=== PATIENT | female | born 1970 | race African-American/Black ===

== ENCOUNTER 2017-06-15 07:07 | Inpatient (IN) | payer SELFPAY ==
[2017-06-15] VITALS (7 sets, daily range): BP systolic 91–118; BP diastolic 54–81
[~2017-06-15] VITALS: Ht 167.6 cm; Wt 86.6 kg
[2017-06-15] MEDS ORDERED: Meclizine 25mg tab ORAL ONE (07:30)
[2017-06-15 07:50] LABS: BASOPHILS % (AUTO) 1.3 % (0.0-2.0); EOSINOPHILS % (AUTO) 0.8 % (0.0-3.0); HEMOGLOBIN 13.1 G/DL (12.0-16.0); LYMPHOCYTES % (AUTO) 27.9 % (20.0-45.0); MEAN CORPUSCULAR VOLUME 89 FL (80-99); MONOCYTES % (AUTO) 6.7 % (1.0-10.0); NEUTROPHILS % (AUTO) 63.3 % (45.0-75.0); PLATELET COUNT 153 K/UL (150-450); RED BLOOD COUNT 4.48 M/UL (4.20-5.40); RED CELL DISTRIBUTION WIDTH 12.7 % (11.6-14.8); WHITE BLOOD COUNT 8.5 K/UL (4.8-10.8)
[2017-06-15 07:59] LABS: ANION GAP 11 mmol/L (5-15); BLOOD UREA NITROGEN 10 mg/dL (7-18); CALCIUM 8.1 MG/DL (8.5-10.1); CARBON DIOXIDE 21 MMOL/L (21-32); CHLORIDE 107 MMOL/L (98-107); POTASSIUM 3.6 MMOL/L (3.5-5.1); SODIUM 139 MMOL/L (136-145)
[2017-06-15 08:15] LABS: ALANINE AMINOTRANSFERASE 21 U/L (12-78); ALBUMIN 3.3 G/DL (3.4-5.0); ALBUMIN/GLOBULIN RATIO 0.8 (1.0-2.7); ALKALINE PHOSPHATASE 40 U/L (46-116); ASPARTATE AMINO TRANSFERASE 29 U/L (15-37); BILIRUBIN,TOTAL 0.4 MG/DL (0.2-1.0); CKMB 0.7 NG/ML (0.0-3.6); CREATINE KINASE 161 U/L (26-308)
--- NOTE | 2017-06-15 08:31 | Diagnostic Imaging Report ---
Indications: Syncope Technique: Spiral acquisitions obtained through the brain. Angled axial and coronal 5 x 5 mm slices were reconstructed. Total dose length product 1382.96 mGycm. CTDI vol(s) 70.38 mGy. Dose reduction achieved using automated exposure control Comparison: None. Findings: No acute intracranial hemorrhage or edema. No mass effect or midline shift. Normal her-white differentiation. Normal-sized ventricles and extra axial CSF spaces. Visualized orbits and sinuses are unremarkable. The calvarium is intact. Impression: Negative The CT scanner at [facility] is accredited by the [employer] and the scans are performed using protocols designed to limit radiation exposure to as low as reasonably achievable to attain images of sufficient resolution adequate for diagnostic evaluation.
--- NOTE | 2017-06-15 08:57 | Emergency Room Report ---
History of Present Illness General Chief Complaint: Syncope Source: Patient Present Illness HPI 46-year-old female presents ED for evaluation. Patient brought in by EMS. States that she woke up this morning and felt very dizzy. Moira that the room was spinning "in up to down fashion". States that she was unable to walk instead ED and was crawling to the bathroom. Call 911. States she still feels the symptoms. Denies any headache. Denies neck stiffness. Denies fevers or chills. States she felt fine last night. Denies any prior episodes. No other aggravating or relieving factors. Denies chest pain or shortness of breath. Denies any other associated symptoms Allergies: Coded Allergies: No Known Allergies (Unverified , 06/15/17) Patient History Past Medical History: none Past Surgical History: none Pertinent Family History: none Social History: Denies: smoking, alcohol use, drug use Last Menstrual Period: "last month" Now: No Immunizations: UTD Reviewed Nursing Documentation: PMH: Agreed; PSxH: Agreed Nursing Documentation-PMH Past Medical History: No Stated History Review of Systems All Other Systems: negative except mentioned in HPI Physical Exam Vital Signs Date Time Temp Pulse Resp B/P (MAP) Pulse Ox O2 Delivery O2 Flow Rate FiO2 06/15/17 07:04 97.8 70 16 109/73 100 Room Air 97.9 Sp02 EP Interpretation: reviewed, normal General Appearance: no apparent distress, alert, GCS 15, non-toxic Head: normocephalic, atraumatic Eyes: bilateral eye normal inspection, bilateral eye PERRL ENT: hearing grossly normal, normal pharynx, no angioedema, normal voice Neck: full range of motion, supple/symm/no masses Respiratory: chest non-tender, lungs clear, normal breath sounds, speaking full sentences Cardiovascular #1: regular rate, rhythm, no edema Cardiovascular #2: 2+ carotid (R), 2+ carotid (L), 2+ radial (R), 2+ radial (L) , 2+ dorsalis pedis (R), 2+ dorsalis pedis (L) Gastrointestinal: normal bowel sounds, non tender, soft, non-distended, no guarding, no rebound Rectal: deferred Genitourinary: normal inspection, no CVA tenderness Musculoskeletal: back normal, gait/station normal, normal range of motion, non- tender Neurologic: alert, oriented x3, responsive, platform beater III-XII nml as tested, motor strength/tone normal, sensory intact, speech normal Psychiatric: judgement/insight normal, memory normal, mood/affect normal, no suicidal/homicidal ideation Reflexes: 3+ bicep (R), 3+ bicep (L), 3+ tricep (R), 3+ tricep (L), 3+ knee (R) , 3+ knee (L) Skin: normal color, no rash, warm/dry, well hydrated Lymphatic: no adenopathy Medical Decision Making Diagnostic Impression: Primary Impression: Vertigo Additional Impression: Unsteady gait ER Course Hospital Course 46-year-old female woke up with severe vertigo and dizziness with unsteady gait Differential diagnoses include: CT/unstable angina, arrythmia, dehydration, CVA/ TIA Clinical course Patient placed on stretcher. 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 After initial history and physical I ordered labs, EKG, chest x-ray, IVFs, CT Brain labs reviewed- no leukocytosis, hemoglobin/hematocrit ok, electrolytes okay, troponins negative EKG- NSR, no acute ischemic changes interpreted by me Chest x-ray- no acute process CT brain-unremarkable MRI also shows no acute process. Despite medications and IV fluids patient remains with vertigo and unsteady gait. I believe patient will require admission Case discussed with Dr. Arias and he agreed to accept the patient to his service for further care and support I. I feel this is a highly complex case requiring extensive working including EKG/Rhythm strip, Xray/CT/US, Blood/urine lab work, repeat exams while in ED, and administration of strong opiates/narcotics for pain control, admission to hospital or close patient follow up. Diagnosis - vertigo, unsteady gait admitted to floor in serious condition Labs Test 06/15/17 07:30 06/15/17 08:30 White Blood Count 8.5 K/UL (4.8-10.8) Red Blood Count 4.48 M/UL (4.20-5.40) Hemoglobin 13.1 G/DL (12.0-16.0) Hematocrit 40.0 % (37.0-47.0) Mean Corpuscular Volume 89 FL (80-99) Mean Corpuscular Hemoglobin 29.2 PG (27.0-31.0) Mean Corpuscular Hemoglobin Concent 32.7 G/DL (32.0-36.0) Red Cell Distribution Width 12.7 % (11.6-14.8) Platelet Count 153 K/UL (150-450) Mean Platelet Volume 7.7 FL (6.5-10.1) Neutrophils (%) (Auto) 63.3 % (45.0-75.0) Lymphocytes (%) (Auto) 27.9 % (20.0-45.0) Monocytes (%) (Auto) 6.7 % (1.0-10.0) Eosinophils (%) (Auto) 0.8 % (0.0-3.0) Basophils (%) (Auto) 1.3 % (0.0-2.0) Sodium Level 139 MMOL/L (136-145) Potassium Level 3.6 MMOL/L (3.5-5.1) Chloride Level 107 MMOL/L (98-107) Carbon Dioxide Level 21 MMOL/L (21-32) Anion Gap 11 mmol/L (5-15) Blood Urea Nitrogen 10 mg/dL (7-18) Creatinine 1.0 MG/DL (0.55-1.30) Estimat Glomerular Filtration Rate 59.7 mL/min (>60) Glucose Level 98 MG/DL (74-106) Calcium Level 8.1 MG/DL (8.5-10.1) Total Bilirubin 0.4 MG/DL (0.2-1.0) Aspartate Amino Transf (AST/SGOT) 29 U/L (15-37) Alanine Aminotransferase (ALT/SGPT) 21 U/L (12-78) Alkaline Phosphatase 40 U/L (46-116) Total Creatine Kinase 161 U/L (26-308) Creatine Kinase MB 0.7 NG/ML (0.0-3.6) Creatine Kinase MB Relative Index 0.4 Troponin I 0.000 ng/mL (0.000-0.056) Total Protein 7.3 G/DL (6.4-8.2) Albumin 3.3 G/DL (3.4-5.0) Globulin 4.0 g/dL Albumin/Globulin Ratio 0.8 (1.0-2.7) EKG Diagnostic Results Rate: normal Rhythm: NSR ST Segments: no acute changes ASA given to the pt in ED: No Rhythm Strip Diag. Results EP Interpretation: yes Rhythm: NSR, no PVC's, no ectopy Chest X-Ray Diagnostic Results Chest X-Ray Diagnostic Results : Chest X-Ray Ordered: Yes # of Views/Limited/Complete: 1 View Indication: Other - dizziness EP Interpretation: Yes Interpretation: no consolidation, no effusion, no pneumothorax, no acute cardiopulmonary disease Impression: No acute disease Electronically Signed by: Electronically signed by Vaughn Melara MD CT/MRI/US Diagnostic Results CT/MRI/US Diagnostic Results #1: Imaging Test Ordered: CT Head Impression no acute process CT/MRI/US Diagnostic Results #2: Imaging Test Ordered: MRI Brain Impression no acute process Last Vital Signs Date Time Temp Pulse Resp B/P (MAP) Pulse Ox O2 Delivery O2 Flow Rate FiO2 06/15/17 07:14 97.9 71 14 114/81 98 Room Air 97.9 Status: improved Disposition: ADMITTED INPATIENT Condition: Serious Referrals: NOT CHOSEN IPA/,REFERRING (PCP) Vaughn Melara MD Jun 15, 2017 08:57
[2017-06-15 08:58] LABS: APPEARANCE,URINE CLEAR; BILIRUBIN, URINE NEGATIVE (NEGATIVE); COLOR,URINE YELLOW; GLUCOSE, URINE (UA) NEGATIVE (NEGATIVE); KETONES,URINE NEGATIVE (NEGATIVE); LEUKOCYTE ESTERASE ,URINE 3+ (NEGATIVE); NITRITE,URINE POSITIVE (NEGATIVE); PH,URINE 6 (4.5-8.0); PROTEIN,URINE NEGATIVE (NEGATIVE); UROBILINOGEN,URINE NORMAL MG/DL (0.0-1.0)
--- NOTE | 2017-06-15 09:24 | Diagnostic Imaging Report ---
Indication: Chest pain Technique: One view of the chest Comparison: Findings: Lungs and pleural spaces are clear. Heart size is normal Impression: No acute process
--- NOTE | 2017-06-15 10:13 | Diagnostic Imaging Report ---
Indication: Dizziness and syncope Technique: sagittal T1 fast spin echo, axial T1 FLAIR, axial T2 FLAIR, axial T2 FS PROPELLER, axial T2* GRE, axial diffusion weighted images. ADC and exponential ADC maps generated Comparison: Head CT performed 1 1/2 hours earlier Findings: No abnormal areas of restricted diffusion to suggest acute infarction. No acute hemorrhage or edema. No mass effect nor midline shift. Normal size ventricles and extra axial CSF spaces. Visualized orbits and sinuses are unremarkable. Impression: Negative
[2017-06-15] MEDS ORDERED: cefTRIAXone 1 GM in NS 55 ML IVPB ONE (10:30)
--- NOTE | 2017-06-15 12:38 | Neurology Progress Note ---
Objective Physical Exam Last Vital Signs Date Time Temp Pulse Resp B/P (MAP) Pulse Ox O2 Delivery O2 Flow Rate FiO2 06/15/17 10:31 98.0 81 21 118/68 98 Room Air 98.0 Laboratory Tests Test 06/15/17 07:30 06/15/17 08:30 White Blood Count 8.5 K/UL (4.8-10.8) Red Blood Count 4.48 M/UL (4.20-5.40) Hemoglobin 13.1 G/DL (12.0-16.0) Hematocrit 40.0 % (37.0-47.0) Mean Corpuscular Volume 89 FL (80-99) Mean Corpuscular Hemoglobin 29.2 PG (27.0-31.0) Mean Corpuscular Hemoglobin Concent 32.7 G/DL (32.0-36.0) Red Cell Distribution Width 12.7 % (11.6-14.8) Platelet Count 153 K/UL (150-450) Mean Platelet Volume 7.7 FL (6.5-10.1) Neutrophils (%) (Auto) 63.3 % (45.0-75.0) Lymphocytes (%) (Auto) 27.9 % (20.0-45.0) Monocytes (%) (Auto) 6.7 % (1.0-10.0) Eosinophils (%) (Auto) 0.8 % (0.0-3.0) Basophils (%) (Auto) 1.3 % (0.0-2.0) Sodium Level 139 MMOL/L (136-145) Potassium Level 3.6 MMOL/L (3.5-5.1) Chloride Level 107 MMOL/L (98-107) Carbon Dioxide Level 21 MMOL/L (21-32) Anion Gap 11 mmol/L (5-15) Blood Urea Nitrogen 10 mg/dL (7-18) Creatinine 1.0 MG/DL (0.55-1.30) Estimat Glomerular Filtration Rate 59.7 mL/min (>60) Glucose Level 98 MG/DL (74-106) Calcium Level 8.1 MG/DL (8.5-10.1) L Total Bilirubin 0.4 MG/DL (0.2-1.0) Aspartate Amino Transf (AST/SGOT) 29 U/L (15-37) Alanine Aminotransferase (ALT/SGPT) 21 U/L (12-78) Alkaline Phosphatase 40 U/L (46-116) L Total Creatine Kinase 161 U/L (26-308) Creatine Kinase MB 0.7 NG/ML (0.0-3.6) Creatine Kinase MB Relative Index 0.4 Troponin I 0.000 ng/mL (0.000-0.056) Total Protein 7.3 G/DL (6.4-8.2) Albumin 3.3 G/DL (3.4-5.0) L Globulin 4.0 g/dL Albumin/Globulin Ratio 0.8 (1.0-2.7) L Urine Color Yellow Urine Appearance Clear Urine pH 6 (4.5-8.0) Urine Specific [place] 1.010 (1.005-1.035) Urine Protein Negative (NEGATIVE) Urine Glucose (UA) Negative (NEGATIVE) Urine Ketones Negative (NEGATIVE) Urine Occult Blood 2+ (NEGATIVE) H Urine Nitrite Positive (NEGATIVE) H Urine Bilirubin Negative (NEGATIVE) Urine Urobilinogen Normal MG/DL (0.0-1.0) Urine Leukocyte Esterase 3+ (NEGATIVE) H Urine RBC 2-4 /HPF (0 - 2) H Urine WBC 5-10 /HPF (0 - 2) H Urine Squamous Epithelial Cells Few /LPF (NONE/OCC) Urine Bacteria Moderate /HPF (NONE) H Impression/Recommendations Recommendations #[id number] BRANDIE MISTRY Jun 15, 2017 12:38
[2017-06-15] MEDS: Meclizine 25mg tab ORAL SCH ×3 (12:57→23:11)
[2017-06-15] MEDS ORDERED: MULTIVITAMINS1 EAC2 ORAL (17:58)
[2017-06-15] MEDS ORDERED: GARLIC1 EAC1 PO (17:58)
--- NOTE | 2017-06-15 18:45 | Consultation ---
DATE OF CONSULTATION: 06/15/2017 NEUROLOGICAL CONSULTATION CONSULTING PHYSICIAN: Honorio Rao M.D. REQUESTING PHYSICIAN: Sreekanth Arias D.O. LOCATION: Emergency room. HISTORY OF PRESENT ILLNESS: This is a 46-year-old female, seen in neurological consultation to evaluate the new onset of acute positional vertigo. According to the patient, over the last few days she was feeling fairly well. She has no health issues. She has no flu symptoms. She denies she has no exposure to any alcohol or drugs. She went to bed feeling well and she slept well until about 5:30 when she woke up to go to the bathroom, but when she got up, she felt "like a wavy lines in my eyes like earth moving from underneath my feet". She was trying to walk. She was very unstable, so she had to sit back. Later, she ease up herself to the floor, slowly crawled to the bathroom, pulled up herself on the bathtub. On the way back, she felt like things were spinning "ups and down". As she was getting up, she felt nausea. At that point, she called her mother who was a registered nurse, advised to stay still for an hour. If not get better, then call paramedics. So, she went to bed. While staying still, she felt better, but any attempt to turn around or predominantly get up made her feel nauseous and unsteady. At one point, she got up, got dizzy, lost consciousness, and fell. Her roommate put some cold compress on her head while calling 911. Paramedics found her fully awake. Vital signs were stable. The patient indicate that paramedics later told her that she had two more brief episodes of unresponsiveness. Since arrival to emergency room, she prefers to stay in a dark room, in supine position, which makes her most comfortable. Her vital signs remained stable, blood pressure 109/76 and temperature 97.8 degrees. Initial assessment revealed no evidence of electrolyte deficits. EKG, normal sinus rhythm. Chest x-ray, no acute process. CT scan of the brain revealed no acute abnormalities. MRI of the brain revealed no acute abnormalities. No midline shift. The patient is being admitted for further observation and treatment. While in the ER, she was given meclizine 50 mg, but also Zofran 4 mg IV. She was started on IV fluids and Rocephin. PAST MEDICAL HISTORY: No medical issues in the past. No loss of consciousness. No similar episodes of dizziness. ALLERGIES: None reported. FAMILY HISTORY: Noncontributory. SOCIAL HISTORY: Single, lives with a girlfriend. 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 No alcohol. No drug abuse. Nonsmoker. REVIEW OF SYMPTOMS: While supine, lying still, she feels fairly well with no headache, no dizziness, no chest pain, no palpitations, no respiratory problems, no unilateral weakness, numbness, or tingling. No urine or bowel incontinence. The patient indicated that as she tried to get up, she felt very unsteady and had to hold on. She felt very unsteady when she is getting up on her feet. She found no difference lying in bed on the right or left side. PHYSICAL EXAMINATION: GENERAL: A well-developed, well-nourished, pleasant lady, not in acute distress, found to be lying on a stretcher with eyes closed in dark room. VITAL SIGNS: Her vital signs are stable, blood pressure 118/80 and respirations 14. HEENT: Head, normocephalic. There is no evidence of trauma. Eyes, ears, and throat are clear. NECK: Supple. No meningeal signs. MUSCULOSKELETAL: Unremarkable. There are no deformities. Peripheral pulses 1+ and symmetric. MENTAL STATUS: She is fully alert and oriented x3 with no evidence of aphasia or apraxia. Cognitive function normal. No perception. No thought abnormalities. Emotionally stable. CRANIAL NERVE II: Pupils are 3 mm, both responding to light and accommodation. Extraocular movements full range. There is a saccadic pursuit and lateral gazes. No clear evidence of nystagmus. While staying still, she was able to move eyes in all directions without causing dizziness or nausea. CRANIAL NERVE V: Normal corneal responses. CRANIAL NERVE VII: No facial asymmetry. CRANIAL NERVE VIII: Normal hearing. Attempted Hallpike maneuver. With sitting up, the patient felt acute dizziness. There was no nystagmus noted. There was no vertigo sensation with the head turned to right or left. While in sitting position, the patient has been ataxic. CRANIAL NERVES IX THROUGH XII: Tongue is in midline. Symmetric palate elevation. MOTOR EXAMINATION: Normal muscle tone. Strength 5/5 in all extremities. No involuntary movement. Deep tendon reflexes 1+ and symmetric with downgoing toes on both sides. SENSORY EXAM: Normal to pinprick and light touch. Coordination, very slow [id number], but accurate. Normal [id number] test. The patient was able to sit up very cautiously. While sitting, she was unsteady holding out to the bed board. She was not attempting to get up. IMPRESSION: Probably acute benign positional vertigo with nausea and truncal ataxia. DISCUSSION: The patient has no radiological evidence of encephalitis, demyelinating disease, or acute ischemic disease. No hemorrhages. The patient has no risk factors to suspect such. It is unusual aspect of positional vertigo. It is significant level of truncal ataxia. The patient will remain under observation following 24 hours. We will continue with meclizine 25 mg q.i.d., Zofran as needed. Laboratory work to include HESHAM, sedimentation rate, lipid panel, and thyroid function. Continue with IV hydration and maintain fall precaution. Thank you for allowing me to see this interesting patient in neurological consultation. Honorio Rao M.D. DR: MKII JOB#: [id number] CC:
--- NOTE | 2017-06-15 19:30 | History and Physical Report ---
DATE OF ADMISSION: 06/15/2017 TIME: 3 p.m. CONSULTANTS: 1. Honorio Rao M.D. 2. Naeem Majano M.D. CHIEF COMPLAINT: Dizziness, vertigo and nausea. BRIEF HISTORY: The patient is a 46-year-old female, yesterday started having vertigo, . The patient became nauseous, but vomitus. She became very weak and came to [place], diagnosed as above, being admitted to shortly. Currently calm, slightly anxious in bed, oriented x3, slight distress secondary to nausea and dizziness. PAST MEDICAL HISTORY: Nothing. PAST SURGICAL HISTORY: None. MEDICATIONS: Meclizine, Zofran, and ceftriaxone. ALLERGIES: Denies. SOCIAL HISTORY: No smoke. Occasional alcohol. No intravenous drug abuse. FAMILY HISTORY: Noncontributory. PHYSICAL EXAMINATION: GENERAL: Slightly anxious in bed, oriented x3, no acute distress. VITAL SIGNS: Temperature 97 degrees, pulse 89, respiratory rate 18, and blood pressure 113/64. CARDIOVASCULAR: No murmur. LUNGS: Distant and clear. ABDOMEN: Bowel sound positive. Nontender. Nondistended. EXTREMITIES: No cyanosis, clubbing, or edema. NEUROLOGIC: The patient moves all extremities slightly weak. LABORATORY AND DIAGNOSTIC DATA: CBC is normal. BMP shows calcium 8.1 and albumin 3.3, otherwise BMP is normal. Urinalysis, 2+ occult blood and 3+ leukocyte esterase. ASSESSMENT: 1. UTI. 2. Vertigo. 3. Dizziness. 4. Nausea. PLAN: Continue premedications. OT/PT. Dietary evaluation. CBC and BMP in the morning. Antibiotics per Infectious Disease. Dustin Rao, Dr. Majano and Dr. Tenorio to consult. We will continue to follow this patient medically. Sreekanth Arias D.O. DR: ELIZABETH JOB#: [id number] CC:
[2017-06-15 21:55] LABS: CHOLESTEROL 191 MG/DL (< 200); HDL CHOLESTEROL 45 MG/DL (40-60); TRIGLYCERIDES 103 MG/DL (30-150)
--- NOTE | 2017-06-15 22:52 | Cardiology Progress Note ---
Assessment/Plan Assessment/Plan The patient is seen and examined, full consult note will be dictated shortly. Objective Last 24 Hour Vital Signs Date Time Temp Pulse Resp B/P (MAP) Pulse Ox O2 Delivery O2 Flow Rate FiO2 06/15/17 20:10 98.9 104 20 107/60 99 Room Air 98.9 06/15/17 18:51 98.3 80 15 93/58 99 Room Air 98.3 06/15/17 17:10 98.6 79 17 91/54 98 Room Air 98.6 06/15/17 15:00 97.9 79 18 113/64 98 Room Air 97.9 06/15/17 12:58 98.3 96 17 98/56 99 Room Air 98.3 06/15/17 10:31 98.0 81 21 118/68 98 Room Air 98.0 06/15/17 07:14 97.9 71 14 114/81 98 Room Air 97.9 06/15/17 07:04 97.8 70 16 109/73 100 Room Air 97.9 Laboratory Tests Test 06/15/17 07:30 06/15/17 08:30 06/15/17 21:20 White Blood Count 8.5 K/UL (4.8-10.8) Red Blood Count 4.48 M/UL (4.20-5.40) Hemoglobin 13.1 G/DL (12.0-16.0) Hematocrit 40.0 % (37.0-47.0) Mean Corpuscular Volume 89 FL (80-99) Mean Corpuscular Hemoglobin 29.2 PG (27.0-31.0) Mean Corpuscular Hemoglobin Concent 32.7 G/DL (32.0-36.0) Red Cell Distribution Width 12.7 % (11.6-14.8) Platelet Count 153 K/UL (150-450) Mean Platelet Volume 7.7 FL (6.5-10.1) Neutrophils (%) (Auto) 63.3 % (45.0-75.0) Lymphocytes (%) (Auto) 27.9 % (20.0-45.0) Monocytes (%) (Auto) 6.7 % (1.0-10.0) Eosinophils (%) (Auto) 0.8 % (0.0-3.0) Basophils (%) (Auto) 1.3 % (0.0-2.0) Sodium Level 139 MMOL/L (136-145) Potassium Level 3.6 MMOL/L (3.5-5.1) Chloride Level 107 MMOL/L (98-107) Carbon Dioxide Level 21 MMOL/L (21-32) Anion Gap 11 mmol/L (5-15) Blood Urea Nitrogen 10 mg/dL (7-18) Creatinine 1.0 MG/DL (0.55-1.30) Estimat Glomerular Filtration Rate 59.7 mL/min (>60) Glucose Level 98 MG/DL (74-106) Calcium Level 8.1 MG/DL (8.5-10.1) L Total Bilirubin 0.4 MG/DL (0.2-1.0) Aspartate Amino Transf (AST/SGOT) 29 U/L (15-37) Alanine Aminotransferase (ALT/SGPT) 21 U/L (12-78) Alkaline Phosphatase 40 U/L (46-116) L Total Creatine Kinase 161 U/L (26-308) Creatine Kinase MB 0.7 NG/ML (0.0-3.6) Creatine Kinase MB Relative Index 0.4 Troponin I 0.000 ng/mL (0.000-0.056) Total Protein 7.3 G/DL (6.4-8.2) Albumin 3.3 G/DL (3.4-5.0) L Globulin 4.0 g/dL Albumin/Globulin Ratio 0.8 (1.0-2.7) L Urine Color Yellow Urine Appearance Clear Urine pH 6 (4.5-8.0) Urine Specific [place] 1.010 (1.005-1.035) Urine Protein Negative (NEGATIVE) Urine Glucose (UA) Negative (NEGATIVE) Urine Ketones Negative (NEGATIVE) Urine Occult Blood 2+ (NEGATIVE) H Urine Nitrite Positive (NEGATIVE) H Urine Bilirubin Negative (NEGATIVE) Urine Urobilinogen Normal MG/DL (0.0-1.0) Urine Leukocyte Esterase 3+ (NEGATIVE) H Urine RBC 2-4 /HPF (0 - 2) H Urine WBC 5-10 /HPF (0 - 2) H Urine Squamous Epithelial Cells Few /LPF (NONE/OCC) Urine Bacteria Moderate /HPF (NONE) H Erythrocyte Sedimentation Rate 27 MM/HR (0-20) H C-Reactive Protein, Quantitative < 0.4 mg/dL (0.00-0.90) Triglycerides Level 103 MG/DL (30-150) Cholesterol Level 191 MG/DL (< 200) LDL Cholesterol 130 mg/dL (<100) H HDL Cholesterol 45 MG/DL (40-60) Cholesterol/HDL Ratio 4.2 (3.3-4.4) Vitamin B12 Level 753 PG/ML (193-986) Anti-Nuclear Antibody Screen Pending RESHMA PEREZ Jun 15, 2017 22:52
[2017-06-16] VITALS: BP 117/68
[2017-06-16 04:00] VITALS: BP 109/70
[2017-06-16] MEDS: Meclizine 25mg tab ORAL SCH ×3 (06:14→17:39)
[2017-06-16 07:13] LABS: BASOPHILS % (AUTO) 1.6 % (0.0-2.0); EOSINOPHILS % (AUTO) 1.3 % (0.0-3.0); HEMATOCRIT 36.6 % (37.0-47.0); HEMOGLOBIN 11.7 G/DL (12.0-16.0); LYMPHOCYTES % (AUTO) 41.6 % (20.0-45.0); MEAN CORPUSCULAR VOLUME 90 FL (80-99); MONOCYTES % (AUTO) 10.1 % (1.0-10.0); NEUTROPHILS % (AUTO) 45.3 % (45.0-75.0); PLATELET COUNT 178 K/UL (150-450); RED BLOOD COUNT 4.05 M/UL (4.20-5.40); RED CELL DISTRIBUTION WIDTH 12.9 % (11.6-14.8); WHITE BLOOD COUNT 7.6 K/UL (4.8-10.8)
[2017-06-16 07:15] LABS: ANION GAP 8 mmol/L (5-15); BLOOD UREA NITROGEN 12 mg/dL (7-18); CALCIUM 7.7 MG/DL (8.5-10.1); CARBON DIOXIDE 26 MMOL/L (21-32); CHLORIDE 109 MMOL/L (98-107); CREATININE 1.1 MG/DL (0.55-1.30); POTASSIUM 3.5 MMOL/L (3.5-5.1); SODIUM 142 MMOL/L (136-145)
[2017-06-16 08:00] VITALS: BP 105/68
[2017-06-16 12:00] VITALS: BP 111/53
--- NOTE | 2017-06-16 12:04 | Neurology Progress Note ---
Interim History Interim History ROS Limited/Unobtainable: No Complaints: POSITIONAL VERTIGO UNSTEADY GAIT Events: sl improvement Objective Physical Exam Last Vital Signs Date Time Temp Pulse Resp B/P (MAP) Pulse Ox O2 Delivery O2 Flow Rate FiO2 06/16/17 08:00 98.1 74 18 105/68 98 98.1 06/15/17 20:15 Room Air Laboratory Tests Test 06/15/17 21:20 06/16/17 05:10 Erythrocyte Sedimentation Rate 27 MM/HR (0-20) H C-Reactive Protein, Quantitative < 0.4 mg/dL (0.00-0.90) Triglycerides Level 103 MG/DL (30-150) Cholesterol Level 191 MG/DL (< 200) LDL Cholesterol 130 mg/dL (<100) H HDL Cholesterol 45 MG/DL (40-60) Cholesterol/HDL Ratio 4.2 (3.3-4.4) Vitamin B12 Level 753 PG/ML (193-986) Anti-Nuclear Antibody Screen Pending White Blood Count 7.6 K/UL (4.8-10.8) Red Blood Count 4.05 M/UL (4.20-5.40) L Hemoglobin 11.7 G/DL (12.0-16.0) L Hematocrit 36.6 % (37.0-47.0) L Mean Corpuscular Volume 90 FL (80-99) Mean Corpuscular Hemoglobin 28.9 PG (27.0-31.0) Mean Corpuscular Hemoglobin Concent 32.0 G/DL (32.0-36.0) Red Cell Distribution Width 12.9 % (11.6-14.8) Platelet Count 178 K/UL (150-450) Mean Platelet Volume 6.8 FL (6.5-10.1) Neutrophils (%) (Auto) 45.3 % (45.0-75.0) Lymphocytes (%) (Auto) 41.6 % (20.0-45.0) Monocytes (%) (Auto) 10.1 % (1.0-10.0) H Eosinophils (%) (Auto) 1.3 % (0.0-3.0) Basophils (%) (Auto) 1.6 % (0.0-2.0) Sodium Level 142 MMOL/L (136-145) Potassium Level 3.5 MMOL/L (3.5-5.1) Chloride Level 109 MMOL/L (98-107) H Carbon Dioxide Level 26 MMOL/L (21-32) Anion Gap 8 mmol/L (5-15) Blood Urea Nitrogen 12 mg/dL (7-18) Creatinine 1.1 MG/DL (0.55-1.30) Estimat Glomerular Filtration Rate > 60 mL/min (>60) Glucose Level 101 MG/DL (74-106) Calcium Level 7.7 MG/DL (8.5-10.1) L General: well developed, well nourished, no acute distress, other Head: normocophalic Neck: no rigidity EENT: benign Neurologic Exam Mental Status: awake, alert, oriented x4, normal cognition, good mathematical skills, normal recent memory, normal remote memory, preserved visuospatial function Speech: normal speech, no dysarthia Language: normal language, no aphasia Cranial Nerve II: fundus normal, visual jenkins, no papilledema Cranial Nerves III, IV, : PERRLA, EOMI, pupils Cranial Nerve V: normal facial sensations, temporales function normal, masseters function normal, pterygoids function normal Cranial Nerve VII: no facial asymmetry, normal facial expressions Cranial Nerve VIII: normal hearing, no nystagmus, other - positiona dizziness Cranial Nerve IX: normal palate elevation, gag response Cranial Nerve X: no voice hoarseness Cranial Nerve XI: SCM symmetric, trapezii function normal Cranial Nerve XII: tongue midline, no tongue atrophy/fasciculations Motor System: normal muscle tone, strength 5/5, no involuntary movement, no muscle wasting Sensory: normal pinprick, normal light touch, normal position sense, normal graphesthesia Coordination: normal finger to nose bilaterally, normal heel to mcdowell bilaterally, negative Romberg test, other - + romberg, unsteady Deep Tendon Reflexes: 2+ bicep (L), 2+ bicep (R), 2+ tricep (L), 2+ tricep (R) , 2+ brachioradialis (L), 2+ brachioradialis (R), 2+ knee (L), 2+ knee (R), 2+ ankle (L), 2+ ankle (R) Stance: normal Gait: stable, normal regular, heel + toe gait, other - ataxia Impression/Recommendations Problems: (1) Unsteady gait (2) Vertigo Recommendations decadron 4mg tid today only #[id number] BRANDIE MISTRY Jun 16, 2017 12:04
[2017-06-16] MEDS: Dexamethasone 4mg/ml vial IVP SCH ×3 (12:42→18:00)
--- NOTE | 2017-06-16 13:16 | Consultation ---
Consult Note Consult Note ID DIC # [id number] Mario Tenorio MD Jun 16, 2017 13:16
--- NOTE | 2017-06-16 14:27 | General Progress Note ---
Assessment/Plan Problem List: (1) UTI (urinary tract infection) ICD Codes: N39.0 - Urinary tract infection, site not specified SNOMED: 56041152 (2) Vertigo ICD Codes: R42 - Dizziness and giddiness SNOMED: 518879403, 007905725 (3) Unsteady gait ICD Codes: R26.81 - Unsteadiness on feet SNOMED: 06274084, 876657871 Status: unchanged Assessment/Plan ot pt diet abx cbc bmp am dc plan Subjective Constitutional: Reports: weakness Allergies: Coded Allergies: No Known Allergies (Unverified , 06/15/17) All Systems: reviewed and negative except above Subjective sl dizzy Objective Last 24 Hour Vital Signs Date Time Temp Pulse Resp B/P (MAP) Pulse Ox O2 Delivery O2 Flow Rate FiO2 06/16/17 12:00 98.2 76 18 111/53 99 98.2 06/16/17 08:00 98.1 74 18 105/68 98 98.1 06/16/17 04:00 98.1 74 21 109/70 97 98.1 06/16/17 00:00 97.7 96 21 117/68 98 97.7 06/15/17 20:15 98.9 104 20 107/60 99 Room Air 98.9 06/15/17 20:10 98.9 104 20 107/60 99 Room Air 98.9 06/15/17 18:51 98.3 80 15 93/58 99 Room Air 98.3 06/15/17 17:10 98.6 79 17 91/54 98 Room Air 98.6 06/15/17 15:00 97.9 79 18 113/64 98 Room Air 97.9 Intake and Output 06/15/17 06/16/17 19:00 07:00 Intake Total 1055 ml Balance 1055 ml Intake IV Total 1055 ml # Voids 1 1 Laboratory Tests 06/15/17 21:20: Erythrocyte Sedimentation Rate 27H, C-Reactive Protein, Quantitative < 0.4, Triglycerides Level 103, Cholesterol Level 191, LDL Cholesterol 130H, HDL Cholesterol 45, Cholesterol/HDL Ratio 4.2, Vitamin B12 Level 753, Anti-Nuclear Antibody Screen [Pending] 06/16/17 05:10: White Blood Count 7.6, Red Blood Count 4.05L, Hemoglobin 11.7L, Hematocrit 36.6L , Mean Corpuscular Volume 90, Mean Corpuscular Hemoglobin 28.9, Mean Corpuscular Hemoglobin Concent 32.0, Red Cell Distribution Width 12.9, Platelet Count 178, Mean Platelet Volume 6.8, Neutrophils (%) (Auto) 45.3, Lymphocytes (% ) (Auto) 41.6, Monocytes (%) (Auto) 10.1H, Eosinophils (%) (Auto) 1.3, Basophils (%) (Auto) 1.6, Sodium Level 142, Potassium Level 3.5, Chloride Level 109H, Carbon Dioxide Level 26, Anion Gap 8, Blood Urea Nitrogen 12, Creatinine 1.1, Estimat Glomerular Filtration Rate > 60, Glucose Level 101, Calcium Level 7.7L Height (Feet): 5 Height (Inches): 6.00 Weight (Pounds): 191 General Appearance: alert EENT: normal ENT inspection Neck: normal alignment Cardiovascular: normal peripheral pulses, normal rate, regular rhythm Respiratory/Chest: chest wall non-tender, lungs clear, normal breath sounds Abdomen: normal bowel sounds, non tender, soft Extremities: normal inspection Edema: no edema noted Arm (L), no edema noted Arm (R), no edema noted Leg (L), no edema noted Leg (R), no edema noted Pedal (L), no edema noted Pedal (R), no edema noted Generalized Neurologic: responsive, motor weakness Skin: normal pigmentation, warm/dry DELIA ALLEN Jun 16, 2017 14:27
[2017-06-16 15:56] VITALS: BP 116/70
--- NOTE | 2017-06-16 16:44 | Cardiology Report ---
APPROVED REPORT EKG Measurement Heart [id number] Normal sinus rhythm Normal ECG
--- NOTE | 2017-06-16 18:45 | Consultation ---
DATE OF CONSULTATION: 06/16/2017 INFECTIOUS DISEASES CONSULTATION CONSULTING PHYSICIAN: Maroi Tenorio M.D. REQUESTING PHYSICIAN: Sreekanth Arias D.O. REASON FOR CONSULTATION: Evaluation of the patient for possible infectious process disease as the patient has vertigo/positional vertigo. HISTORY OF PRESENT ILLNESS: The patient is a 46-year-old female with no prior past medical history who develops onset of vertigo mostly with change of position and make her have severe dizziness. The patient has been nauseous and has mild light sensitivity who came to the emergency room. The patient was admitted. The patient does not have history of upper respiratory tract infection or fever recently. No complaint of ear pain to suggest otitis. There is no neck pain or severe headache. PAST MEDICAL HISTORY: Unremarkable. PAST SURGICAL HISTORY: None. MEDICATIONS: The patient has been started on steroids by neurologist, received one dose of Rocephin in the emergency room. ALLERGIES: No known drug allergies. SOCIAL HISTORY: Negative for alcohol or drug and the patient drinks occasionally. FAMILY HISTORY: Not contributing. PHYSICAL EXAMINATION: VITAL SIGNS: Temperature 98 degrees, blood pressure 111/52, pulse 76, and respiratory rate 18. HEENT: No pale conjunctivae. No icterus. NECK: Supple. No lymphadenopathy. CHEST: Clear. HEART: S1 and S2. ABDOMEN: Soft. NEUROLOGIC: The patient is nonfocal; however, after dizziness especially rotating the head toward the left. LABORATORY AND DIAGNOSTIC DATA: CBC overall unremarkable. UA unremarkable. BUN and creatinine are unremarkable. Alkaline phosphatase is unremarkable. Urine culture is growing gram-negative rods, 100,000 colonies. ASSESSMENT: 1. The patient is a 46-year-old female, who came with the positional vertigo, based on history and exam, no evidence of viral infection or infectious process to contribute that. 2. Positive urine culture, 100,000 gram-negative rods suggestive of asymptomatic bacteriuria, no need for treatment. 3. Leukocytosis. 4. Afebrile. PLAN: We will monitor the patient off of antibiotics and we will continue as per neurologist. We will monitor pending cultures. We will labs. We will do further recommendation. Thank you for this consultation. I will follow the patient during this admission. Mario Tenorio M.D. DR: KRISTINE JOB#: [id number] CC:
[2017-06-16 20:35] VITALS: BP 102/67
--- NOTE | 2017-06-16 23:53 | Cardiology Progress Note ---
Assessment/Plan Assessment/Plan 1. Syncope, most likely neurally-mediated, although hypovolemia is a possibility, keep hydrated, carotid US, echo for LV assessment. 2. Subjective Subjective Not on the telemetry unit. Denies chest pain or SOB. Objective Last 24 Hour Vital Signs Date Time Temp Pulse Resp B/P (MAP) Pulse Ox O2 Delivery O2 Flow Rate FiO2 06/16/17 20:35 99.0 78 17 102/67 97 99.0 06/16/17 15:56 97.9 81 19 116/70 97 97.9 06/16/17 12:00 98.2 76 18 111/53 99 98.2 06/16/17 08:00 98.1 74 18 105/68 98 98.1 06/16/17 04:00 98.1 74 21 109/70 97 98.1 06/16/17 00:00 97.7 96 21 117/68 98 97.7 Intake and Output 06/15/17 06/16/17 19:00 07:00 Intake Total 1055 ml Balance 1055 ml IV Total 1055 ml # Voids 1 1 Laboratory Tests Test 06/16/17 05:10 White Blood Count 7.6 K/UL (4.8-10.8) Red Blood Count 4.05 M/UL (4.20-5.40) L Hemoglobin 11.7 G/DL (12.0-16.0) L Hematocrit 36.6 % (37.0-47.0) L Mean Corpuscular Volume 90 FL (80-99) Mean Corpuscular Hemoglobin 28.9 PG (27.0-31.0) Mean Corpuscular Hemoglobin Concent 32.0 G/DL (32.0-36.0) Red Cell Distribution Width 12.9 % (11.6-14.8) Platelet Count 178 K/UL (150-450) Mean Platelet Volume 6.8 FL (6.5-10.1) Neutrophils (%) (Auto) 45.3 % (45.0-75.0) Lymphocytes (%) (Auto) 41.6 % (20.0-45.0) Monocytes (%) (Auto) 10.1 % (1.0-10.0) H Eosinophils (%) (Auto) 1.3 % (0.0-3.0) Basophils (%) (Auto) 1.6 % (0.0-2.0) Sodium Level 142 MMOL/L (136-145) Potassium Level 3.5 MMOL/L (3.5-5.1) Chloride Level 109 MMOL/L (98-107) H Carbon Dioxide Level 26 MMOL/L (21-32) Anion Gap 8 mmol/L (5-15) Blood Urea Nitrogen 12 mg/dL (7-18) Creatinine 1.1 MG/DL (0.55-1.30) Estimat Glomerular Filtration Rate > 60 mL/min (>60) Glucose Level 101 MG/DL (74-106) Calcium Level 7.7 MG/DL (8.5-10.1) L Microbiology Date/Time Source Procedure Growth Status 06/15/17 08:30 Urine,Clean Catch Urine Culture - Preliminary Gram Negative Bacillus 1 Resulted Objective HEENT: No pale conjunctivae or icterus, PERRLA, EOMI NECK: No JVD, no carotid bruit, no lymphadenopathy. CHEST: Clear. HEART: S1 and S2, regular rate and rhythm, no murmurs, gallops or rubs. ABDOMEN: Soft, non-tender, non-distended, + BS EXTREMITIES: no edema, clubbing or cyanosis. NEUROLOGIC: The patient is nonfocal; however, after dizziness especially rotating the head toward the left. RESHMA PEREZ Jun 16, 2017 23:53
[2017-06-17 00:06] VITALS: BP 104/62
[2017-06-17] MEDS: Meclizine 25mg tab ORAL SCH ×3 (00:09→12:49)
--- NOTE | 2017-06-17 03:45 | Consultation ---
DATE OF CONSULTATION: 06/15/2017 CARDIOLOGY CONSULTATION CONSULTING PHYSICIAN: Naeem Majano M.D. REFERRING PHYSICIAN: Sreekanth Arias D.O. REASON FOR CONSULTATION: Management of presyncope. HISTORY OF PRESENT ILLNESS: The patient is a very unfortunate 46-year-old female, who presents to the emergency department by EMS for management and evaluation of presyncope. The patient apparently woke up in the morning of 06/15/2017 with feeling of dizziness and vertigo. The patient was unable to walk, had to crawl to the bathroom, and called 911. The patient did not have any chest pain or shortness of breath. At the time of arrival to the emergency department, blood pressure is 109/73, respirations 16, pulse of 70, O2 saturation was 100%, and she was afebrile. Initial chest x-ray in the emergency department showed no acute cardiopulmonary disease. A 12-lead electrocardiogram was significant for sinus rhythm with no ST and T-wave abnormalities. The patient was admitted to Medical/Surgical for further evaluation and management of presyncope. Having talked to the patient, the patient denies any loss of consciousness associated with this. Records from Neurology team states that in fact the patient at one point after she got dizzy, losses her consciousness, and falls. Her roommate did some cold compress on her head before 911 is called. PAST MEDICAL HISTORY: None. PAST SURGICAL HISTORY: None. MEDICATIONS: List of medications includes Garlic two tablets twice daily and multivitamin one tablet daily. ALLERGIES: None. FAMILY HISTORY: No premature coronary artery disease in first-degree relatives. SOCIAL HISTORY: Single, lives with a girlfriend. 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 No alcohol, tobacco, or illicit drug use. REVIEW OF SYSTEMS: A 12-system review done essentially negative except what mentioned in the history of present illness. PHYSICAL EXAMINATION: GENERAL: The patient is a very unfortunate 46-year-old female, seen in Cardiology consultation at the request of , in no apparent respiratory distress. VITAL SIGNS: Blood pressure was 109/73, pulse of 70, respirations of 16, O2 saturation 100% on room air, and temperature 97.8 degrees Fahrenheit. HEENT: Atraumatic and normocephalic. Anicteric. Pupils are equal, round, and reactive to light and accommodation. Extraocular muscles intact. NECK: JVP is less than 5 cm. No carotid bruits. Carotid upstrokes 2+ bilaterally. CARDIOVASCULAR: Normal S1 and S2. Regular rate and rhythm. No murmurs, gallops, or rubs. PMI is at fourth interspace in the midclavicular line. LUNGS: Clear to auscultation bilaterally. ABDOMEN: Soft, nontender, and nondistended. No hepatosplenomegaly. Positive bowel sounds. EXTREMITIES: No evidence of edema, clubbing, or cyanosis. LABORATORY DATA: Laboratory findings, WBC 8.5, hemoglobin 13.1, hematocrit 40, and platelet count is 153. Sodium was 139, potassium is 3.6, chloride 107, bicarbonate 21, BUN of 10, creatinine 1.0, and glucose is 98. Calcium is 8.1. Troponin I was 0.00. ASSESSMENT AND PLAN: The patient is a very unfortunate 46-year-old female, seen in Cardiology consultation for presyncope/syncope. 1. Presyncope/syncope, this could be either a new mediated or due to hypovolemia. We would like to obtain orthostatic vitals, a 2D echocardiography for assessment of LV systolic function, and carotid artery ultrasound. Continue with hydration and electrolyte correction. I agree with placement on meclizine. 2. Borderline hypotension. This patient may benefit from midodrine should her dizziness and lightheadedness continue or future episode of loss of consciousness occur. I would like to thank, Dr. Arias, for allowing me to participate in the care of this patient. Naeem Majano M.D. DR: LILLIAN JOB#: [id number] CC:
[2017-06-17 04:00] VITALS: BP 105/60
[2017-06-17] MEDS: Dexamethasone 4mg/ml vial IVP SCH ×2 (06:07)
[2017-06-17 08:00] VITALS: BP 124/63
[2017-06-17 08:44] LABS: BASOPHILS % (AUTO) 0.7 % (0.0-2.0); EOSINOPHILS % (AUTO) 0.1 % (0.0-3.0); HEMATOCRIT 39.6 % (37.0-47.0); HEMOGLOBIN 12.7 G/DL (12.0-16.0); LYMPHOCYTES % (AUTO) 21.3 % (20.0-45.0); MEAN CORPUSCULAR VOLUME 89 FL (80-99); MONOCYTES % (AUTO) 2.5 % (1.0-10.0); NEUTROPHILS % (AUTO) 75.3 % (45.0-75.0); PLATELET COUNT 195 K/UL (150-450); RED BLOOD COUNT 4.46 M/UL (4.20-5.40); RED CELL DISTRIBUTION WIDTH 12.6 % (11.6-14.8); WHITE BLOOD COUNT 10.9 K/UL (4.8-10.8)
[2017-06-17 09:00] LABS: ANION GAP 8 mmol/L (5-15); BLOOD UREA NITROGEN 13 mg/dL (7-18); CALCIUM 8.3 MG/DL (8.5-10.1); CARBON DIOXIDE 26 MMOL/L (21-32); CHLORIDE 105 MMOL/L (98-107); CREATININE 1.1 MG/DL (0.55-1.30); POTASSIUM 3.4 MMOL/L (3.5-5.1); SODIUM 138 MMOL/L (136-145)
[2017-06-17 12:00] VITALS: BP 106/66
--- NOTE | 2017-06-17 12:45 | General Progress Note ---
Assessment/Plan Problem List: (1) UTI (urinary tract infection) ICD Codes: N39.0 - Urinary tract infection, site not specified SNOMED: 67656742 (2) Vertigo ICD Codes: R42 - Dizziness and giddiness SNOMED: 069577496, 574833012 (3) Unsteady gait ICD Codes: R26.81 - Unsteadiness on feet SNOMED: 73810655, 886946104 Status: stable, progressing, tolerating diet Assessment/Plan ot pt diet abx dc if clear Subjective Constitutional: Reports: weakness Allergies: Coded Allergies: No Known Allergies (Unverified , 06/15/17) All Systems: reviewed and negative except above Subjective sl dizzy Objective Last 24 Hour Vital Signs Date Time Temp Pulse Resp B/P (MAP) Pulse Ox O2 Delivery O2 Flow Rate FiO2 06/17/17 12:00 98.9 17 106/66 100 98.9 06/17/17 08:00 98.6 84 20 124/63 99 98.6 06/17/17 04:00 98.0 67 19 105/60 99 98.0 06/17/17 00:06 98.9 68 18 104/62 96 98.9 06/16/17 20:35 99.0 78 17 102/67 97 99.0 06/16/17 15:56 97.9 81 19 116/70 97 97.9 Intake and Output 06/16/17 06/17/17 19:00 07:00 Intake Total 480 ml 360 ml Balance 480 ml 360 ml Intake Oral 480 ml 360 ml # Voids 2 Laboratory Tests 06/17/17 07:53: White Blood Count 10.9H, Red Blood Count 4.46, Hemoglobin 12.7, Hematocrit 39.6 , Mean Corpuscular Volume 89, Mean Corpuscular Hemoglobin 28.5, Mean Corpuscular Hemoglobin Concent 32.1, Red Cell Distribution Width 12.6, Platelet Count 195, Mean Platelet Volume 6.5, Neutrophils (%) (Auto) 75.3H, Lymphocytes ( %) (Auto) 21.3, Monocytes (%) (Auto) 2.5, Eosinophils (%) (Auto) 0.1, Basophils (%) (Auto) 0.7, Sodium Level 138, Potassium Level 3.4L, Chloride Level 105, Carbon Dioxide Level 26, Anion Gap 8, Blood Urea Nitrogen 13, Creatinine 1.1, Estimat Glomerular Filtration Rate > 60, Glucose Level 129H, Calcium Level 8.3L Height (Feet): 5 Height (Inches): 6.00 Weight (Pounds): 191 General Appearance: alert EENT: normal ENT inspection Neck: normal alignment Cardiovascular: normal peripheral pulses, normal rate, regular rhythm Respiratory/Chest: chest wall non-tender, lungs clear, normal breath sounds Abdomen: normal bowel sounds, non tender, soft Extremities: normal inspection Edema: no edema noted Arm (L), no edema noted Arm (R), no edema noted Leg (L), no edema noted Leg (R), no edema noted Pedal (L), no edema noted Pedal (R), no edema noted Generalized Neurologic: responsive, motor weakness Skin: normal pigmentation, warm/dry DELIA ALLEN Jun 17, 2017 12:45
--- NOTE | 2017-06-17 12:58 | Infectious Diseases Prog Note ---
Assessment/Plan Assessment/Plan ASSESSMENT: 1. The patient is a 46-year-old female, w positional vertigo, no evidence of viral infection or other infectious process to contribute that. Asymptomatic bacteriuria urine culture, 100 K E Coli Leukocytosis. Afebrile. MRI : no abnormal areas of restricted diffusion to suggest acute infarction P Monitor pt off of AB Rx Monitor CBC Monitor BMO [place] following Subjective Allergies: Coded Allergies: No Known Allergies (Unverified , 06/15/17) Subjective afebrile Objective Vital Signs Last 24 Hour Vital Signs Date Time Temp Pulse Resp B/P (MAP) Pulse Ox O2 Delivery O2 Flow Rate FiO2 06/17/17 12:00 98.9 17 106/66 100 98.9 06/17/17 08:00 98.6 84 20 124/63 99 98.6 06/17/17 04:00 98.0 67 19 105/60 99 98.0 06/17/17 00:06 98.9 68 18 104/62 96 98.9 06/16/17 20:35 99.0 78 17 102/67 97 99.0 06/16/17 15:56 97.9 81 19 116/70 97 97.9 Height (Feet): 5 Height (Inches): 6.00 Weight (Pounds): 191 HEENT: anicteric Respiratory/Chest: no respiratory distress Cardiovascular: regular rhythm Abdomen: no organomegaly Microbiology Date/Time Source Procedure Growth Status 06/15/17 08:30 Urine,Clean Catch Urine Culture - Final Escherichia Coli Complete Laboratory Tests Test 06/17/17 07:53 White Blood Count 10.9 K/UL (4.8-10.8) H Red Blood Count 4.46 M/UL (4.20-5.40) Hemoglobin 12.7 G/DL (12.0-16.0) Hematocrit 39.6 % (37.0-47.0) Mean Corpuscular Volume 89 FL (80-99) Mean Corpuscular Hemoglobin 28.5 PG (27.0-31.0) Mean Corpuscular Hemoglobin Concent 32.1 G/DL (32.0-36.0) Red Cell Distribution Width 12.6 % (11.6-14.8) Platelet Count 195 K/UL (150-450) Mean Platelet Volume 6.5 FL (6.5-10.1) Neutrophils (%) (Auto) 75.3 % (45.0-75.0) H Lymphocytes (%) (Auto) 21.3 % (20.0-45.0) Monocytes (%) (Auto) 2.5 % (1.0-10.0) Eosinophils (%) (Auto) 0.1 % (0.0-3.0) Basophils (%) (Auto) 0.7 % (0.0-2.0) Sodium Level 138 MMOL/L (136-145) Potassium Level 3.4 MMOL/L (3.5-5.1) L Chloride Level 105 MMOL/L (98-107) Carbon Dioxide Level 26 MMOL/L (21-32) Anion Gap 8 mmol/L (5-15) Blood Urea Nitrogen 13 mg/dL (7-18) Creatinine 1.1 MG/DL (0.55-1.30) Estimat Glomerular Filtration Rate > 60 mL/min (>60) Glucose Level 129 MG/DL (74-106) H Calcium Level 8.3 MG/DL (8.5-10.1) L Current Medications Medications (Trade) Dose Ordered Sig/Norma Route PRN Reason Start Time Stop Time Status Last Admin Dose Admin Meclizine HCl (Antivert) 25 mg Q6HR ORAL 06/15/17 13:00 07/15/17 12:59 06/17/17 12:49 Ondansetron HCl (Zofran) 4 mg Q8H PRN IVP Nausea & Vomiting 06/15/17 12:30 07/15/17 12:29 Mario Tenorio MD Jun 17, 2017 12:58
--- NOTE | 2017-06-17 14:12 | Neurology Progress Note ---
Interim History Interim History ROS Limited/Unobtainable: No Complaints: still slight ataxia feel fliccerin OD Events: improvement Objective Physical Exam Last Vital Signs Date Time Temp Pulse Resp B/P (MAP) Pulse Ox O2 Delivery O2 Flow Rate FiO2 06/17/17 12:00 98.9 17 106/66 100 98.9 06/17/17 08:00 84 06/15/17 20:15 Room Air Laboratory Tests Test 06/17/17 07:53 White Blood Count 10.9 K/UL (4.8-10.8) H Red Blood Count 4.46 M/UL (4.20-5.40) Hemoglobin 12.7 G/DL (12.0-16.0) Hematocrit 39.6 % (37.0-47.0) Mean Corpuscular Volume 89 FL (80-99) Mean Corpuscular Hemoglobin 28.5 PG (27.0-31.0) Mean Corpuscular Hemoglobin Concent 32.1 G/DL (32.0-36.0) Red Cell Distribution Width 12.6 % (11.6-14.8) Platelet Count 195 K/UL (150-450) Mean Platelet Volume 6.5 FL (6.5-10.1) Neutrophils (%) (Auto) 75.3 % (45.0-75.0) H Lymphocytes (%) (Auto) 21.3 % (20.0-45.0) Monocytes (%) (Auto) 2.5 % (1.0-10.0) Eosinophils (%) (Auto) 0.1 % (0.0-3.0) Basophils (%) (Auto) 0.7 % (0.0-2.0) Sodium Level 138 MMOL/L (136-145) Potassium Level 3.4 MMOL/L (3.5-5.1) L Chloride Level 105 MMOL/L (98-107) Carbon Dioxide Level 26 MMOL/L (21-32) Anion Gap 8 mmol/L (5-15) Blood Urea Nitrogen 13 mg/dL (7-18) Creatinine 1.1 MG/DL (0.55-1.30) Estimat Glomerular Filtration Rate > 60 mL/min (>60) Glucose Level 129 MG/DL (74-106) H Calcium Level 8.3 MG/DL (8.5-10.1) L General: well developed, well nourished, no acute distress, other Head: normocophalic Neck: no rigidity EENT: benign Neurologic Exam Mental Status: awake, alert, oriented x4, normal cognition, good mathematical skills, normal recent memory, normal remote memory, preserved visuospatial function Speech: normal speech, no dysarthia Language: normal language, no aphasia Cranial Nerve II: fundus normal, visual jenkins, no papilledema Cranial Nerves III, IV, : PERRLA, EOMI, pupils Cranial Nerve V: normal facial sensations, temporales function normal, masseters function normal, pterygoids function normal Cranial Nerve VII: no facial asymmetry, normal facial expressions Cranial Nerve VIII: normal hearing, no nystagmus, other - positiona dizziness Cranial Nerve IX: normal palate elevation, gag response Cranial Nerve X: no voice hoarseness Cranial Nerve XI: SCM symmetric, trapezii function normal Cranial Nerve XII: tongue midline, no tongue atrophy/fasciculations Motor System: normal muscle tone, strength 5/5, no involuntary movement, no muscle wasting Sensory: normal pinprick, normal light touch, normal position sense, normal graphesthesia Coordination: normal finger to nose bilaterally, normal heel to mcdowell bilaterally, negative Romberg test, other Deep Tendon Reflexes: 2+ bicep (L), 2+ bicep (R), 2+ tricep (L), 2+ tricep (R) , 2+ brachioradialis (L), 2+ brachioradialis (R), 2+ knee (L), 2+ knee (R), 2+ ankle (L), 2+ ankle (R) Reflexes: mute plantar (L), mute plantar (R) Stance: normal Gait: stable, normal regular, heel + toe gait, other - slow wabbly Impression/Recommendations Problems: (1) Unsteady gait (2) Vertigo Status: stable, progressing, tolerating diet Recommendations ok d/c home off steroids fall precaution d/w patient re mgmt #[id number] BRANDIE MISTRY Jun 17, 2017 14:12
--- NOTE | 2017-06-18 10:31 | Discharge Summary ---
Discharge Summary Hospital Course Date of Admission Jun 15, 2017 at 11:07 Date of Discharge Jun 17, 2017 at 15:42 Admitting Diagnosis unsteady gait, dizziness HPI Sharmin Hobson is a 46 year old female who was admitted on Jun 15, 2017 at 11: 07 for Unsteady Gait,Dizziness Hospital Course [id number] Discharge Discharge Disposition Patient was discharged to Home (01) Maira Flores NP Jun 18, 2017 10:31
--- NOTE | 2017-06-18 21:45 | Discharge Summary 2 SIG ---
DATE OF ADMISSION: 06/15/2017 DATE OF DISCHARGE: 06/17/2017 CONSULTANTS: 1. Honorio Rao M.D. 2. Mario Tenorio M.D. 3. Naeem Majano M.D. BRIEF HOSPITAL COURSE: The patient is a 46-year-old female who came from home, started to have vertigo. The patient was nauseous and became very weak. She then presented to ED via EMS. On evaluation at ED, blood work showed no leukocytosis. Hemoglobin and hematocrit were stable. Initial troponin was negative. She had an EKG that showed normal sinus rhythm with no acute ischemic changes. Chest x-ray showed no acute process. CT of the brain was unremarkable. She also had a brain MRI that was negative, however, the patient continued to have vertigo and had an unsteady gait. She required admission. She underwent neurological evaluation with Dr. Rao. On neurologic examination attempted to do Hallpike maneuver, however, the patient felt dizzy. There was no nystagmus noted. There was no vertigo sensation with turning the head right or to the left. The patient had been ataxic. She was assessed to have acute benign positional vertigo with nausea and truncal ataxia. There was no radiological evidence of encephalitis or demyelinating disease or any acute ischemic changes. She was given meclizine and Zofran p.r.n. and was continued on IV hydration. She was placed on fall precautions. She did not have any evidence of viral infection or infectious process to contribute to the symptoms. She had a positive urine culture with 100,000 gram-negative rods suggestive of asymptomatic bacteriuria. No need for treatment per Infectious Disease specialist. She was observed off antibiotic treatment. She also underwent cardiac evaluation. Presyncope/syncopal episode, possibly mediated or due to hypovolemia. She was eventually started on Decadron with improvement in symptoms. She was eventually discharged home on steroids. FINAL DIAGNOSES: 1. Benign positional vertigo with ataxia and nausea. 2. Unsteady gait. 3. Asymptomatic bacteriuria with urine showing E. coli. DISPOSITION: The patient was discharged home. DISCHARGE INSTRUCTIONS: Follow up with PMD in a week. Sreekanth Arias D.O. I have been assigned to dictate discharge summary on this account and I was not involved in the patient's management. Maira Flores N.P. DR: FRED JOB#: [id number] CC:
== END 2017-06-17 15:42 | disposition home or self-care (01) | DRG 149 ==
LOC: EDBD 07:07 → EMR 08:35 → EDBEDREQ 08:45 → 4E 11:07 → EDBEDREQ 17:53
DX: H81.10 Benign paroxysmal vertigo, unspecified ear (principal); I95.9 Hypotension, unspecified; R26.81 Unsteadiness on feet; R82.71 Bacteriuria
CPT/HCPCS: 36415; 70450; 70551; 71045; 80048; 80053; 80061; 81003; 82550; 82553; 82607; 84484; 85025; 85651; 86039; 86140; 87086; 87181; 93005; 99285; J2405